=== PATIENT | male | born 1940 | race Caucasian/White ===

== ENCOUNTER → 2024-04-11 15:46 | Outpatient (REF) | payer MEDICARE, SELFPAY | LOC: HWRCS 15:46 | PROVIDERS: ATTENDING PHYSICIAN Internal Medicine Cardiovascular Disease; FAMILY PHYSICIAN Internal Medicine | DX: I49.3 Ventricular premature depolarization (principal); I25.10 Atherosclerotic heart disease of native coronary artery without angina pectoris; I25.810 Atherosclerosis of coronary artery bypass graft(s) without angina pectoris | CPT/HCPCS: 93306 ==

== ENCOUNTER → 2025-02-24 08:55 | Outpatient (REF) | payer MEDICARE, OTHER, SELFPAY | LOC: HWRAD 08:55 | PROVIDERS: ATTENDING PHYSICIAN Student in an Organized Health Care Education/Training Program; FAMILY PHYSICIAN Internal Medicine | DX: H90.A32 Mixed conductive and sensorineural hearing loss, unilateral, left ear with restricted hearing on the contralateral side (principal); Z98.890 Other specified postprocedural states | CPT/HCPCS: 70480 ==